=== PATIENT | male | born 1955 | race Caucasian/White ===

== ENCOUNTER 2018-01-27 03:51 | Observation (INO) | payer OTHER ==
[2018-01-27 05:18] LABS: Troponin I Less than 0.010 ng/mL (< 0.028)
[2018-01-27] MEDS ORDERED: Acetaminophen 325 MG TAB PO PRN (05:37)
--- NOTE | 2018-01-27 05:44 | PDOC.FPRHP ---
Addendum entered and electronically signed by Antony Sebastian MD 01/27/18 06:49 : AGUILA vs CKD: Monitor, trending down. Original Note: - History of Present Illness Chief Complaint: Chest pain History of Present Illness: This is a 62 yo male with a PMH of CAD s/p stents 11/2016, HTN, COPD who presents as a transfer from [facility] with a cc of chest pain and palpitations. Pt states that pain started at 2300 yesterday evening and remained constant. He describes the pain as a 5/10, dull, non-radiating, and substernal. He reports SOB and states that laying down makes the pain worse. He also reports feeling flush and nauseated. In [facility], pt. was diagnosed with Afib with RVR. Pt. was transferred for high level of care and EMS reports. EMS reports a short period of asystole that spontaneously resolved. Denies history of afib. ED Course: Pt. received diltiazem in [facility]. - Allergies/Adverse Reactions Allergies Allergy/AdvReac Type Severity Reaction Status Date / Time No Known Drug Allergies Allergy Verified 01/27/18 05:47 - Home Medications Medication Instructions Recorded Confirmed Type Symbicort 2 puff INH BID 11/19/16 01/27/18 History amLODIPine Besylate/Benazepril 1 capsule PO QAM 11/19/16 01/27/18 History [Amlodipine-Benazepril 10-20 mg] Aspirin [Aspirin Chewable Tablet] 81 mg PO DAILY #30 tab 11/21/16 01/27/18 Rx Albuterol Sulfate [Proair HFA] 2 puff INH Q6HR PRN 01/27/18 01/27/18 History Apixaban [Eliquis] 5 mg PO BID #60 tablet 01/27/18 Rx Atorvastatin Calcium [Lipitor] 40 mg PO HS 01/27/18 01/27/18 History Metoprolol Tartrate 12.5 mg PO Q12HR #30 tab 01/27/18 Rx Metoprolol Tartrate [Lopressor] 12.5 mg PO BID tab 01/27/18 Rx Multivitamin [Multivitamins] 1 cap PO DAILY 01/27/18 01/27/18 History Tiotropium [place] [Spiriva] 1 puff INH DAILY 01/27/18 01/27/18 History Zantac 150 mg PO BID PRN 01/27/18 01/27/18 History - History PMHx: CAD s/p stent 11/2016, HTN, COPD PSHx: Neck and knee surgery, stent placement FHx:positive for heart disease Social: Former smoker, denies D/A - Review of Systems General: denies: fever/chills, weight/appetite/sleep changes, night sweats Eyes: denies: eye pain, vision changes ENT: denies: nasal congestion, rhinorrhea Respiratory: reports: shortness of breath. denies: cough, congestion Cardiovascular: reports: chest pain, palpitation. denies: edema Gastrointestinal: reports: nausea. denies: vomiting, diarrhea, constipation, abdominal pain Genitourinary: denies: incontinence, dysuria Skin: denies: rashes, lesions Musculoskeletal: denies: pain, tenderness Neurological: denies: numbness, syncope Psychological: denies: anxiety, depression - Vital signs BP: 140/88 HR: 78 RR: 20 Tmax: 98.1 Pox: 100% on RA Wt: 98.1 - Physical Exam Constitutional: NAD, awake, alert and oriented HEENT: normocephalic and atraumatic, PERRLA, EOMI, MMM Neck: supple, FROM, trachea midline Chest: no-tender to palpation Heart: RRR, normal S1/S2, no murmurs/rubs/gallops Lungs: CTAB, no respiratory distress, good air movement Abdomen: soft, non-tender, bowel sounds present Musculoskeletal: normal structure, normal tone Neurological: no focal deficit Skin: no rash/lesions, good turgor Heme/Lymphatic: no unusual bruising or bleeding, no purpura Psychiatric: normal mood and affect, good judgment and insight FMR H&P: Results - Labs Result Diagrams: 01/27/18 04:17 Lab results: WBC7.6 Hgb 16.5 Hct48.1 Snh129 Na142 K4.2 Cl21 Sbitcx46 BUN28 Cr1.67 [id number] Troponin 0.01 - EKG Interpretation EKG: EKG shows NSR with rate of 84. FMR H&P: A/P - Problem List (1) Atrial fibrillation with RVR Current Visit: No Status: Acute Code(s): I48.91 - UNSPECIFIED ATRIAL FIBRILLATION (2) CAD (coronary artery disease) Current Visit: No Status: Acute Code(s): I25.10 - ATHSCL HEART DISEASE OF [place] CORONARY ARTERY W/O ANG PCTRS (3) COPD (chronic obstructive pulmonary disease) Current Visit: No Status: Chronic Qualifiers: COPD type: unspecified COPD Qualified Code(s): J44.9 - Chronic obstructive pulmonary disease, unspecified (4) HTN (hypertension) Current Visit: No Status: Chronic Code(s): I10 - ESSENTIAL (PRIMARY) HYPERTENSION Qualifiers: Hypertension type: essential hypertension Qualified Code(s): I10 - Essential (primary) hypertension - Plan This is a 62 yo male with PMH of CAD s/p stent 11/2016, HTN, COPD Afib with RVR with spontaneous conversion -Admit to tele obs. New onset afib, we will get an echo and consider cardiology consult based on results. CATHY VAS score is 2 and therefore pt. will likely need anticoagulation. CAD -We are trending troponins, negative x1. Continue home medications AGUILA -Fluid resuscitation and monitor HTN -Continue home medications Code: Full Prophylaxis: SCDs Family: none at bedside Disposition: DC in 1-2 days FMR H&P: Upper Level - Pertinent history 62 yo WM PMH CAD s/p stents 1 year ago, HTN, and COPD. Presents with CP and palpitations that started at approximately 2300 on 01/26/18. Denies history of a -fib. Was seen in [place] [facility] and given diltiazem because he was found to be in A-fib with RVR. After bolus and starting on drip, he had 3-4 seconds of systole followed by conversion into NSR. patient reports no chest pain at this time. [place] ER: Dilt bolus plus drip, labs, EKG, CXR [facility] ER: Observed and admitted. - Pertinent findings Vitals: WNL GEN: NAD, A&Ox4 CV: RRR, no murmur Pulm: CTA-B, normal effort Abd: NTND Labs: Troponin negative x2, Cr 1.67, EKG: A-fib with RVR on initial exam. repeat show NSR. CXR: no acute processes - Plan Date/Time: 01/27/18 0536 I, Antony Sebastian MD, have evaluated this patient and agree with findings/plan as outlined by customer operations intern resident. Pertinent changes/additions are listed here. 1. New onset A-fib with RVR: currently in NSR. Will continue metoprolol, check TTE, and consider cardiology consultation. [id number] score 2 so anticoagulation indicated. Will need follow up with his outpatient metal sprayer . 2. CAD s/p stent: continue metoprolol, BHUMIKA inhibitor, antiplatelet, and high intensity statin. 3. HTN: home meds 4. COPD: home meds 5. Diet: HH 6. PPx: SCDs 7. CODE: FULL Dispo: Obs, Tele, <[address] Gomes. Attending Addendum - Attending Addendum Date/Time: 01/27/181951 I personally evaluated the patient and discussed the management with Dr. Lynch I agree with the History, Examination, Assessment and Plan documented above with any addition or exceptions noted below- Briefly this is a 62 yo male with h /o CAD s/p stent placement in 11/2016 and HTN oresented c/o palpitations with associated chest pressure. Never had similar symptoms, Associated symptoms included nausea and SOB. Denies any vomiting or diaphoresis. On presentation to ER patient was found to be in A-fib with RVR. Was started on cardizem drip and transferred to [facility]. Currently symptoms have resolved. PMH/PSH/All/Meds reviewed and agree with residents documentation. Afebrile VSS Exam repeated by me and agree with residents [id number]. Labs: trop I<0.010. A/P: 1) New onset Afib- now back in sinus; off cardizem. Will consult cardiology for recommendations. Echo ordered.
[2018-01-27 05:45] VITALS: BMI 27.6
[2018-01-27 06:45] LABS: ALT (SGPT) 48 U/L (8-55); AST (SGOT) 43 U/L (5-34); Albumin 4.3 g/dL (3.4-4.8); Alkaline Phosphatase 83 U/L (40-150); Anion Gap 11 mmol/L (10-20); BUN (Urea Nitrogen) 29 mg/dL (8.4-25.7); Bilirubin, Total 0.4 mg/dL (0.2-1.2); Calc. Creatinine Clearance 71 mL/min (70-130); Calcium 9.2 mg/dL (7.8-10.44); Carbon Dioxide 21 mmol/L (23-31); Chloride 110 mmol/L (98-107); Estimated GFR-MDRD 52; Globulin 2.8 g/dL (2.4-3.5); Glucose 110 mg/dL (80-115); Potassium 4.2 mmol/L (3.5-5.1); Protein, Total 7.1 g/dL (5.8-8.1); Sodium 138 mmol/L (136-145)
[2018-01-27] MEDS ORDERED: PROVENTIL INHALER 6.7 G (200 INHALATIONS) INH PRN (06:49)
[2018-01-27] MEDS ORDERED: Ipratropium Bromide 2.5 ml Neb NEB SCH (07:04)
[2018-01-27] MEDS ORDERED: Ipratropium Bromide 2.5 ml Neb ONE (07:20)
[2018-01-27 07:49] LABS: Troponin I Less than 0.010 ng/mL (< 0.028)
[2018-01-27] MEDS: Metoprolol Tartrate 25 MG TAB PO SCH ×2 (08:26→19:38)
[2018-01-27] MEDS: Sodium Chloride 0.9% 1,000 ML IV SCH ×2 (08:27→15:08)
[2018-01-27 08:48] VITALS: TEMP 98.2
[2018-01-27] MEDS ORDERED: TICAGRELOR 90 MG TABLET PO SCH (09:00)
[2018-01-27] MEDS ORDERED: Multivit, Therapeutic 1 TAB PO SCH (09:00)
[2018-01-27] MEDS ORDERED: Non-Formulary Item 1 EACH (Multivitamin [Multivitamins] 1 CAP) PO SCH (09:00)
[2018-01-27] MEDS ORDERED: Amlodipine 5 mg/Benazepril 10 mg CAP PO SCH (09:00)
[2018-01-27] MEDS ORDERED: BENAZEPRIL PO SCH (09:00)
[2018-01-27] MEDS ORDERED: Famotidine 20 MG TAB PO SCH (09:00)
[2018-01-27] MEDS ORDERED: [UNRECOGNIZED DRUG - OTHER] PO SCH (09:00)
[2018-01-27] MEDS ORDERED: AMLODIPINE BESYLATE PO SCH (09:00)
[2018-01-27 10:33] LABS: Troponin I Less than 0.010 ng/mL (< 0.028)
[2018-01-27] MEDS ORDERED: Regadenoson 0.4 MG/5 ML SYRINGE ONE (10:40)
--- NOTE | 2018-01-27 13:33 | CON ---
DATE OF CONSULTATION: 01/27/2018 REASON FOR CONSULTATION: Atrial fibrillation and history of coronary artery disease. HISTORY OF PRESENT ILLNESS: Mr. Sylvester is a very pleasant 62-year-old gentleman with a history of cor onary artery disease, status post stent placement in 11/2016. He recently developed a heart flutteri ng. He proceeded to the emergency room and was found to be in atrial fibrillation with RVR. While i n the ambulance, he converted to sinus rhythm. There was a question of a significant pause of unknow n duration while in the ambulance, which was not documented. He had complained of associated chest t ightness in his lower chest. He states he underwent coronary angiography in 2016 and underwent stent placement. He then underwent a stress test on a treadmill in November, but did not achieve 85% predicted heart rate. He developed shortness of breath. PAST MEDICAL HISTORY: As above including COPD, previous tobacco abuse. PAST SURGICAL HISTORY: Knee surgery, neck surgery. FAMILY HISTORY: Positive for CAD. SOCIAL HISTORY: No current tobacco or alcohol use. HOME MEDICATIONS: Include amlodipine, benazepril, Brilinta, albuterol, atorvastatin, multivitamin, S piriva and Zantac. REVIEW OF SYSTEMS: A 10-point review of systems is reviewed and as above, otherwise negative. PHYSICAL EXAMINATION: GENERAL: Patient is a pleasant male who is in no acute distress. The patient appears his stated age . VITAL SIGNS: Blood pressure 104/58, pulse 67, and temperature 98.2. NEUROLOGIC: The patient is alert and oriented times 3 with no focal neurologic deficits. HEENT: Sclerae without icterus. Mouth has moist mucous membranes with normal pallor. NECK: No JVD. Carotid upstroke brisk. No bruits bilaterally. LUNGS: Clear to auscultation with unlabored respirations. BACK: No scoliosis or kyphosis. CARDIAC: Regular rate and rhythm with normal S1 and S2. No S3 or S4 noted. No significant rubs, mu rmurs, thrills, or gallops noted throughout the precordium. PMI is not displaced. There is no gudelia ternal heave. ABDOMEN: Soft, nontender, nondistended. No peritoneal signs present. No hepatosplenomegaly. No ab normal striae. EXTREMITIES: 2+ femoral and 2+ dorsalis pedis pulses. No cyanosis, clubbing, or edema. SKIN: No gross abnormalities. LABORATORY DATA: Hemoglobin 16.5, white blood cell count 7.6, platelet count of 249,000. Creatinine 1.39. EKG, normal sinus rhythm, normal EKG. IMPRESSION: 1. New onset atrial fibrillation. 2. Coronary artery disease. RECOMMENDATIONS: The patient's CHADS-VASc score is estimated at 2 CAD as vascular disease. I have discussed the risks and benefits of anticoagulation therapy. He would like to think about his o ptions. If so, would end up stopping Brilinta and adding Eliquis or Xarelto to aspirin. We would al so recommend a noninvasive stress study to assess for any areas of ischemia. He does have shortness of breath and a history of CAD. We will try and obtain today. If the above is negative, it would be discharge home with close outpatient followup with Cardiology in [place].
[2018-01-27] MEDS: Ipratropium Bromide 2.5 ml Neb NEB SCH ×2 (14:22→18:24)
[2018-01-27 16:29] VITALS: BP 117/85
--- NOTE | 2018-01-27 17:51 | NM ---
MYOCARDIAL PERFUSION SCAN WITH STRESS IMAGING: History: Chest pain. FINDINGS: Examination was performed using 27.5 mCi Technetium 99M Sestamibi on stress and 9.5 mCi Technetium 99 M Sestamibi on the resting imaging. This shows a normal distribution of the radial pharmaceutical. No signs of ischemia or scar. WALL MOTION: There is symmetric contractility to the ventricle. LEFT VENTRICULAR EJECTION FRACTION: The calculated left ventricular ejection fraction is 68%. IMPRESSION: Unremarkable myocardial perfusion scan. POS: ALBARO
[2018-01-27] MEDS ORDERED: Mometasone/Formoterol 120 PUFF INHALER INH SCH (18:30)
[2018-01-27] MEDS ORDERED: Apixaban 5 MG TAB PO SCH (18:45)
--- NOTE | 2018-01-27 18:46 | PDOC.EVN ---
Event Note - Event Note Event Note: Patient cleared by cardiology for d/c home with close outpatient f/u. Spoke with patient and family. Patient agreed to start anticoagulation. Per cardiology recs, will stop Brillenta and start eliquis 5 mg BID with ASA. Discussed risks, benefits, and alternatives. Patient given dose before leaving hospital. Discussed with Dr. Gomes.
[2018-01-27] MEDS ORDERED: Atorvastatin Calcium 40 MG TAB PO SCH (21:00)
--- NOTE | 2018-01-28 09:46 | DIS-2 ---
DATE OF ADMISSION: 01/27/2018 DATE OF DISCHARGE: 01/27/2018 RESIDENT: Viral Raymond DO ADMITTING ATTENDING: Vi Gomes M.D. DISCHARGE ATTENDING: Vi Gomes M.D. CONSULTATIONS: Cardiology, Dr. Vyas. PROCEDURES: 1. Echocardiogram showed a left ventricular ejection fraction estimated at 55%-60%, possible diastol ic dysfunction, mild mitral regurgitation, mild tricuspid regurgitation. 2. Nuclear stress test. Impression: Unremarkable myocardial perfusion scan. PRIMARY DIAGNOSIS: New onset atrial fibrillation. SECONDARY DIAGNOSES: 1. Coronary artery disease. 2. Chronic obstructive pulmonary disease. 3. Acute kidney injury. 4. Hypertension. DISCHARGE MEDICATIONS: 1. Amlodipine/benazepril 10/20 mg 1 capsule p.o. q.a.m. 2. Symbicort 2 puffs inhaled b.i.d. 3. Aspirin 81 mg p.o. daily. 4. Multivitamin 1 cap p.o. daily. 5. Albuterol sulfate 2 puffs inhaled q.6 hours p.r.n. 6. Tiotropium bromide 1 puff inhaled daily. 7. Zantac 150 mg p.o. b.i.d. p.r.n. 8. Metoprolol 12.5 mg p.o. b.i.d. 9. Eliquis 5 mg p.o. b.i.d. 10. Atorvastatin calcium 40 mg p.o. at bedtime. DISCONTINUED MEDICATIONS: Brilinta 90 mg p.o. b.i.d. HISTORY OF PRESENT ILLNESS AND HOSPITAL COURSE: The patient presented as a transfer from [facility] with reports of symptomatic atrial fibrillation on their monitors and a bout of asystole that spont aneously resolved and converted during his time here. During his time here, he experienced no more s ymptoms, was normal sinus on the monitor. Cardiology was consulted. Beta diann was added. The pa audient remained stable. Cardiology recommended that, with his CHADS-VASc score at 2, starting anticoa gulation. Risks and benefits were discussed and he decided to start on Eliquis. Recommended followu p with Cardiology in [place]. DISPOSITION: Stable. DISCHARGE INSTRUCTIONS: 1. Location: Home. 2. Diet: Heart healthy. 3. Activity: As tolerated. 4. Follow up with Cardiology in [place] in 7 days. Follow up with his PCP in 7 days.
--- NOTE | 2018-02-02 12:16 | EKG ---
Test Reason : Blood Pressure : / mmHG Vent. Rate : 084 BPM Atrial Rate : 084 BPM P-R Int : 154 ms QRS Dur : 080 ms QT Int : 354 ms P-R-T Axes : 019 -33 037 degrees QTc Int : 418 ms Normal sinus rhythm Left axis deviation Abnormal ECG Confirmed by FRANCO PITTS MD ([id number]), electronic news gathering editor ANSELMO PATE ([id number]) on 02/02/2018 12:15:53 PM Referred By: Confirmed By:FRANCO PITTS MD
== END 2018-01-27 20:00 | disposition home or self-care (01) ==
LOC: ERS 03:51 → 2SW 04:10
PROVIDERS: ADMIT Family Medicine; ATTEND Family Medicine
DX: I48.91 Unspecified atrial fibrillation (principal); R07.2 Precordial pain; I48.92 Unspecified atrial flutter; I25.10 Atherosclerotic heart disease of native coronary artery without angina pectoris; J44.9 Chronic obstructive pulmonary disease, unspecified; I10 Essential (primary) hypertension; N17.9 Acute kidney failure, unspecified; Z87.891 Personal history of nicotine dependence; Z79.01 Long term (current) use of anticoagulants; Z79.02 Long term (current) use of antithrombotics/antiplatelets; Z79.82 Long term (current) use of aspirin; Z79.899 Other long term (current) drug therapy; Z95.5 Presence of coronary angioplasty implant and graft
CPT/HCPCS: 36415; 78452; 93005; 93017; 93306; 94640; 94664; 94760; A9500; G0378; J2785; J7644

== ENCOUNTER 2020-12-26 18:30 | Observation (INO) | payer OTHER ==
[2020-12-26 20:46] VITALS: BMI 31.6
[2020-12-26] MEDS ORDERED: Ondansetron PF 4 MG/2 ML Vial IVP PRN (22:06)
[2020-12-26] MEDS ORDERED: Acetaminophen 650 MG Suppository PR PRN (22:06)
[2020-12-26] MEDS ORDERED: Acetaminophen 325 MG TAB PO PRN (22:06)
[2020-12-26] MEDS ORDERED: Ondansetron ODT 4 MG TAB PO PRN (22:06)
[2020-12-26] MEDS ORDERED: Nitroglycerin 0.4 MG TAB (25 Tab Bottle) SL PRN (22:06)
[2020-12-26 23:21] LABS: Troponin I Less than 0.010 ng/mL (< 0.028)
[2020-12-27] MEDS ORDERED: Aluminum & Magnesium Hydroxide 60 ML, Lidocaine 2% Viscous Solution 30 ML, diphenhydrAM... SSW PRN (00:05)
[2020-12-27] MEDS ORDERED: Aluminum & Magnesium Hydroxide 60 ML, diphenhydrAMINE 150 MG, Lidocaine 2% Viscous Solu... SSW PRN (00:14)
[2020-12-27 04:38] LABS: #Basophils 0.1 thou/uL (0.0-0.2); #Eosinphils 0.2 thou/uL (0.0-0.7); #Lymphocytes 1.7 thou/uL (1.20-3.40); #Monocytes 0.6 thou/uL (0.11-0.59); #Neutrophils 4.7 thou/uL (1.40-6.50); %Basophils 0.9 % (0.0-1.0); %Eosinophils 2.1 % (0.0-10.0); %Lymphocytes 23.1 % (21.0-51.0); %Monocytes 7.8 % (0.0-10.0); Hemoglobin 15.2 g/dL (14.0-18.0); Mean Corpuscular HGB CONC 32.1 g/dL (32.0-36.0); Mean Corpuscular Hemoglobin 30.3 pg (27.0-31.0); Mean Corpuscular Volume 94.4 fL (78.0-98.0); Mean Platelet Volume 6.8 fL (7.4-10.4); Platelet Count 195 thou/uL (130-400); Red Blood Cell (RBC) Count 5.03 mill/uL (4.70-6.10); White Blood Cell (WBC) Count 7.1 thou/uL (4.8-10.8)
[2020-12-27 04:58] LABS: Anion Gap 14 mmol/L (10-20); BUN (Urea Nitrogen) 20 mg/dL (8.4-25.7); Calc. Creatinine Clearance 93 mL/min (70-130); Calcium 8.6 mg/dL (7.8-10.44); Carbon Dioxide 22 mmol/L (23-31); Chloride 108 mmol/L (98-107); Glucose 109 mg/dL (80-115); Potassium 4.2 mmol/L (3.5-5.1); Sodium 140 mmol/L (136-145)
[2020-12-27 05:02] LABS: Troponin I Less than 0.010 ng/mL (< 0.028)
[2020-12-27] MEDS ORDERED: Metoprolol Tartrate 25 MG TAB PO SCH (09:00)
[2020-12-27] MEDS ORDERED: Aspirin Chewable 81 MG TAB PO SCH (09:00)
[2020-12-27] MEDS ORDERED: Apixaban 5 MG TAB PO SCH ×2 (09:45→21:00)
[2020-12-27 16:07] VITALS: BP 124/79; TEMP 97.2
== END 2020-12-27 16:00 | disposition home or self-care (01) ==
LOC: 2NO 20:30
PROVIDERS: ADMIT Internal Medicine; ATTEND Family Medicine
DX: I48.0 Paroxysmal atrial fibrillation (principal); R00.8 Other abnormalities of heart beat; I49.3 Ventricular premature depolarization; R55 Syncope and collapse; I11.0 Hypertensive heart disease with heart failure; I50.30 Unspecified diastolic (congestive) heart failure; J44.9 Chronic obstructive pulmonary disease, unspecified; I25.10 Atherosclerotic heart disease of native coronary artery without angina pectoris; G47.30 Sleep apnea, unspecified; I08.1 Rheumatic disorders of both mitral and tricuspid valves; K21.9 Gastro-esophageal reflux disease without esophagitis; Z87.891 Personal history of nicotine dependence; Z79.01 Long term (current) use of anticoagulants; Z79.82 Long term (current) use of aspirin; Z79.899 Other long term (current) drug therapy; Z95.5 Presence of coronary angioplasty implant and graft
CPT/HCPCS: 36415; 80048; 84484; 85025; 93306; 94760; G0378; Q0163

== ENCOUNTER 2022-03-15 13:44 | Outpatient (CLI) | payer OTHER | END 2022-03-15 13:45 | disposition home or self-care (01) | LOC: RAD 13:44 | PROVIDERS: ATTEND Internal Medicine Critical Care Medicine | DX: R06.00 Dyspnea, unspecified (principal); R91.8 Other nonspecific abnormal finding of lung field | CPT/HCPCS: 71046 ==

== ENCOUNTER 2022-07-17 09:21 | Outpatient (CLI) | payer OTHER | END 2022-07-17 09:22 | disposition home or self-care (01) | LOC: RAD 09:21 | PROVIDERS: ATTEND Internal Medicine Critical Care Medicine | DX: R06.00 Dyspnea, unspecified (principal) | CPT/HCPCS: 71046 ==

== ENCOUNTER 2022-12-26 09:00 | Outpatient (CLI) | payer OTHER, MEDICARE | END 2022-12-26 09:01 | disposition home or self-care (01) | LOC: RAD 09:00 | PROVIDERS: ATTEND Internal Medicine Critical Care Medicine | DX: R06.00 Dyspnea, unspecified (principal); J98.4 Other disorders of lung; I70.0 Atherosclerosis of aorta; R91.8 Other nonspecific abnormal finding of lung field | CPT/HCPCS: 71046 ==

== ENCOUNTER 2024-11-12 08:23 | Outpatient (CLI) | payer MEDICARE | END 2024-11-12 08:24 | disposition home or self-care (01) | LOC: LABBT 08:23 | PROVIDERS: ATTEND Internal Medicine Cardiovascular Disease | DX: Z01.810 Encounter for preprocedural cardiovascular examination (principal); I48.0 Paroxysmal atrial fibrillation | CPT/HCPCS: 93005; 93010 ==

== ENCOUNTER 2024-11-19 06:23 | Day surgery (SDC) | payer MEDICARE ==
[2024-11-12 08:52] VITALS: BMI 27.8
[2024-11-12 09:40] LABS: #Basophils 0.04 10x3/uL (0.0-0.2); #Eosinophils 0.17 10x3/uL (0.0-0.7); #Monocytes 0.73 10x3/uL (0.11-0.59); #Neutrophils 6.41 10x3/uL (1.40-6.50); %Basophils 0.5 % (0.0-1.0); %Eosinophils 1.9 % (0.0-10.0); %Lymphocytes 16.4 % (21.0-51.0); %Monocytes 8.3 % (0.0-10.0); %Neutrophils 72.6 % (42.0-75.0); Hematocrit 47.4 % (42.0-52.0); Hemoglobin 15.6 g/dL (14.0-18.0); Mean Corpuscular Hemoglobin 30.1 pg (27.0-31.0); Mean Corpuscular Volume 91.3 fL (78.0-98.0); Platelet Count 274 10x3/uL (130-400); Red Blood Cell (RBC) Count 5.19 mill/uL (4.70-6.10); White Blood Cell (WBC) Count 8.83 10x3/uL (4.8-10.8)
[2024-11-12 09:54] LABS: INR-International Normal Ratio 2.1; PTT 49.6 sec (22.9-36.1); Prothrombin Time 23.4 sec (12.0-14.7)
[2024-11-12 10:01] LABS: ALT (SGPT) 31 U/L (Less than 45); AST (SGOT) 24 U/L (11-34); Albumin 4.4 g/dL (3.1-4.5); Alkaline Phosphatase 134 U/L (40-110); Anion Gap 12 mmol/L (10-20); BUN (Urea Nitrogen) 9 mg/dL (8.4-25.7); Bilirubin, Total 0.7 mg/dL (0.3-1.2); Calc. Creatinine Clearance 0 mL/min (70-130); Calcium 9.2 mg/dL (7.8-10.44); Carbon Dioxide 26 mmol/L (23-31); Chloride 106 mmol/L (98-107); Globulin 3.2 g/dL (2.4-3.5); Glucose 97 mg/dL (80-115); Potassium 3.9 mmol/L (3.5-5.1); Sodium 140 mmol/L (136-145)
[2024-11-13 05:13] LABS: Myoglobin, Serum 51.0 ng/mL (28-72)
[2024-11-14 11:14] LABS: Hemoglobin,Free - Plasma 1.3 mg/dL (0.0-4.9)
[2024-11-19] MEDS ORDERED: Heparin 10,000 UNITS/ 10 ML VIAL ONE (06:44)
[2024-11-19] MEDS ORDERED: Isoproterenol 0.2 MG/1 ML AMP ONE (06:45)
[2024-11-19] MEDS ORDERED: Rocuronium Bromide 10 MG/ML (10ML VIAL) ONE ×2 (07:20→08:31)
[2024-11-19] MEDS ORDERED: Albuterol 2.5 MG (0.5 mL) NEB ONE (07:45)
[2024-11-19] MEDS ORDERED: Ondansetron PF 4 MG/2 ML Vial ONE (08:31)
[2024-11-19] MEDS ORDERED: PROPOFOL 20 ML ONE (08:31)
[2024-11-19] MEDS ORDERED: SUGAMMADEX SODIUM 200 MG/2 ML VIAL ONE (08:31)
[2024-11-19] MEDS ORDERED: Lidocaine 1% PF 5 ML VIAL ONE (08:31)
[2024-11-19] MEDS ORDERED: PHENYLEPHRINE-NS 100 MCG/ML 10 ML SYRINGE ONE (09:19)
[2024-11-19] MEDS ORDERED: fentaNYL PF 100 MCG/2 ML SYRINGE ONE (11:26)
== END 2024-11-19 15:08 | disposition home or self-care (01) ==
LOC: SDC 06:23
PROVIDERS: ATTEND Internal Medicine Cardiovascular Disease
PROC: 02570ZK Destruction of Left Atrial Appendage, Open Approach (ICD-10-PCS; principal; 2024-11-19)
DX: I48.0 Paroxysmal atrial fibrillation (principal); I25.10 Atherosclerotic heart disease of native coronary artery without angina pectoris; I10 Essential (primary) hypertension; E78.5 Hyperlipidemia, unspecified; Z79.899 Other long term (current) drug therapy; Z79.01 Long term (current) use of anticoagulants
CPT/HCPCS: 80053; 83010; 83051; 83874; 85025; 85347 ×2; 85610; 85730; 86850; 86900; 86901; 93005; 93623; 93655; 93656; 93657; C1730 ×2; C1733; C1759; C1760; C1766; C1769; C1893; C1894 ×2; J1100; J1644 ×2; J2405; J2704; J2720; J3010; 36415; J7611

== ENCOUNTER 2025-02-10 08:37 | Outpatient (CLI) | payer MEDICARE | END 2025-02-10 08:38 | disposition home or self-care (01) | LOC: RAD 08:37 | PROVIDERS: ATTEND Internal Medicine Critical Care Medicine | DX: R06.00 Dyspnea, unspecified (principal); J98.11 Atelectasis; J98.4 Other disorders of lung | CPT/HCPCS: 71046 ==